=== PATIENT | female | born 1955 | race Caucasian/White ===

== ENCOUNTER 2017-11-26 19:50 | Emergency (ER) | payer BC ==
[2017-11-26 20:12] VITALS: BP 122/76; PULSE 84; RESP 18; TEMP 98.2; O2SAT 100
[2017-11-26] MEDS ORDERED: Silver Sulfadiazine 1% Cream (20 gm) TOP STA (20:49)
[2017-11-26] MEDS ORDERED: Silver Sulfadiazine 1% Cream (20 gm) ONE (20:57)
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
== END 2017-11-26 21:24 | disposition home or self-care (01) ==
LOC: C.ER 19:50
DX: T25.221A Burn of second degree of right foot, initial encounter (principal); X19.XXXA Contact with other heat and hot substances, initial encounter; Y93.G3 Activity, cooking and baking; Y92.000 Kitchen of unspecified non-institutional (private) residence as the place of occurrence of the external cause